=== PATIENT | female | born 1965 | race Two or more races ===

== ENCOUNTER 2022-01-30 23:36 | Inpatient (IN) | payer SELFPAY ==
[~2022-01-30] VITALS: Ht 160 cm; Wt 61.0 kg
[2022-01-31 00:07] LABS: Basophils # (auto) 0.1 10 ^3/uL (0-0.2); Basophils % (auto) 0.6 % (0.0-2.0); Eosinophils # (auto) 0.2 10 ^3/uL (0-0.8); Eosinophils % (auto) 1.9 % (0.0-7.0); Hematocrit 41.3 % (36.0-46.0); Hemoglobin 13.6 g/dL (12.2-16.2); Lymphocytes # (auto) 2.4 10 ^3/uL (0.4-5.4); Lymphocytes % (auto) 28.6 % (10.0-50.0); Mean Corpuscular Hemoglobin 28.2 pg (28.0-32.0); Mean Corpuscular Hgb Conc. 32.8 g/dL (32.0-36.0); Mean Corpuscular Volume 85.8 fL (80.0-100.0); Monocytes # (auto) 0.5 10 ^3/uL (0-1.3); Monocytes % (auto) 5.9 % (0.0-12.0); Neutrophils # (auto) 5.2 10 ^3/uL (1.6-8.6); Red Blood Cells 4.82 10^6/uL (4.0-5.20); Red Cell Distribution Width 13.2 % (11.8-14.3); White Blood Cell 8.2 10^3/uL (4.4-10.8)
[2022-01-31 00:46] LABS: Urine WBC None Seen /hpf (0 - 5)
[2022-01-31 00:53] LABS: Urine Bacteria NONE SEEN /hpf (None Seen); Urine Blood Negative /uL (Negative); Urine Specific Gravity 1.002 (1.001-1.035)
[2022-01-31 00:59] LABS: Albumin 3.7 g/dL (3.4-5.0); BUN/Creatinine Ratio 12.8; Calcium 9.2 mg/dL (8.5-10.1); Potassium 3.8 mmol/L (3.5-5.1)
[2022-01-31 01:02] LABS: Bilirubin, Total 0.3 mg/dL (0.2-1.0); Total Protein 8.2 g/dL (6.4-8.2)
[2022-01-31] MEDS ORDERED: HYDROcodone-ACET 5/325MG TAB PO PRN (05:00)
[2022-01-31] MEDS ORDERED: ONDANSETRON HCL 4 MG/2 ML VIAL IV PRN (05:00)
[2022-01-31] MEDS ORDERED: ACETAMINOPHEN 325 MG TAB PO PRN (05:00)
[2022-01-31] MEDS ORDERED: DEXTROSE (50%) 50ML SYRG IV PRN (05:00)
[2022-01-31] MEDS ORDERED: TEMAZEPAM 15 MG CAP PO PRN (05:00)
[2022-01-31] MEDS ORDERED: NITROGLYCERIN 0.4 MG SL TAB SL PRN (05:00)
[2022-01-31] MEDS ORDERED: MORPHINE SULFATE INJ 2 MG/ml SYRG IV PRN (05:00)
[2022-01-31] MEDS ORDERED: SODIUM CHLORIDE 0.9% 500 ML IV ONE (06:45)
[2022-01-31] MEDS ORDERED: ASPirin 81 mg TAB PO ONE ×2 (06:45→07:00)
[2022-01-31] MEDS ORDERED: ACCU-CHEK COMFORT CURVE STRIP VI SCH (07:00)
[2022-01-31] MEDS ORDERED: InsuLIN REG 1unit/0.01ml Soln (100units/ml) SC SCH (07:00)
[2022-01-31] MEDS ORDERED: ADENOSINE 51 MG in GIVE UN-DILUTED 0 ML IV STA (08:40)
[2022-01-31 09:14] VITALS: BP 138/80
[2022-01-31 09:21] LABS: Cholesterol 134 mg/dL (< 200); HDL Cholesterol 49 mg/dL (40-59); LDL Cholesterol 80 mg/dL (< 100); Triglycerides 104 mg/dL (< 150)
[2022-01-31] MEDS ORDERED: LISINOPRIL 5 MG TAB PO SCH (10:00)
[2022-01-31] MEDS ORDERED: ASPirin 81 mg TAB PO SCH (10:00)
[2022-01-31] MEDS ORDERED: ENOXAPARIN SOD 40 MG/0.4 ML SYRINGE SC SCH (10:00)
[2022-01-31 11:00] VITALS: BP 130/71
[2022-01-31] MEDS ORDERED: ATORVASTATIN 20 MG TAB PO SCH (22:00)
== END 2022-01-31 11:51 | disposition home or self-care (01) | DRG 313 ==
LOC: EEVIPCON 23:36 → ER 23:36 → TELE 01-31 04:53
PROVIDERS: ADMIT Nurse Practitioner; ATTEND Internal Medicine
DX: R07.9 Chest pain, unspecified (principal); I16.0 Hypertensive urgency; E11.65 Type 2 diabetes mellitus with hyperglycemia; I10 Essential (primary) hypertension; Z20.822 Contact with and (suspected) exposure to COVID-19; M79.602 Pain in left arm
CPT/HCPCS: 36415; 78452; 80053; 80061; 81001; 82306; 82607; 82962; 83036; 83880; 84443; 84484; 85025; 93005; 93017; 93306; 96360; G0378; J0153